=== PATIENT | female | born 1945 | race Caucasian/White ===

== ENCOUNTER → 2018-06-17 07:04 | Outpatient (CLI) | payer MEDICARE, BC, SELFPAY ==
[2018-06-17 09:31] LABS: Alanine Aminotransferase 20 IU/L (9-52); Albumin 3.9 g/dL (3.5-5.0); Albumin Globulin Ratio 1.2 (1.0-2.8); Alkaline Phosphatase 72 U/L (38-126); Aspartate Aminotransferase 23 IU/L (14-36); BUN Creatinine Ratio 18.6 (6-22); Bilirubin Total 0.4 mg/dL (0.2-1.3); Blood Urea Nitrogen 13 mg/dL (7-17); Calcium 9.2 mg/dL (8.4-10.2); Carbon Dioxide 28 mmol/L (22-32); Chloride 101 mmol/L (98-107); Cholesterol 202 mg/dL (140-199); Estimated Glomerular Filt Rate > 60.0 mL/min (>60); Globulin 3.2 g/dL (1.7-4.1); Glucose 94 mg/dL (80-110); HDL Cholesterol 54 mg/dL (40-60); HEMOLYSIS < 15 (0-50); LDL Cholesterol Calculated 122 mg/dL (<100); Potassium 4.7 mmol/L (3.4-5.1); Sodium 136 mmol/L (137-145); Total Protein 7.1 g/dL (6.3-8.2); Triglycerides 130 mg/dL (35-150)
== END ==
PROVIDERS: PCP Physician Assistant; Visit Provider Physician Assistant
DX: E78.5 Hyperlipidemia, unspecified (principal)
CPT/HCPCS: 36415; 80053; 80061

== ENCOUNTER → 2018-08-02 08:20 | Outpatient (CLI) | payer MEDICARE, BC, SELFPAY ==
[2018-08-05 18:30] LABS: Fecal Immunochemical Test NOT DETECTED
== END ==
PROVIDERS: PCP Physician Assistant; Visit Provider Physician Assistant
DX: Z12.11 Encounter for screening for malignant neoplasm of colon (principal)
CPT/HCPCS: 82274

== ENCOUNTER → 2019-03-04 10:03 | Outpatient (CLI) | payer MEDICARE, BC, SELFPAY ==
--- NOTE | 2019-03-04 | DI.MG.S_ITS ---
BILATERAL DIGITAL SCREENING MAMMOGRAM 3D/2D WITH CAD: 03/04/2019 CLINICAL: Routine screening. Family history of breast cancer. Comparison is made to exams dated: 01/09/2017 mammogram, 12/28/2014 mammogram, and 05/10/2012 mammogram - [facility]. The tissue of both breasts is predominantly fatty. Current study was also evaluated with a Computer Aided Detection (CAD) system. There are benign calcifications in the left breast. No significant masses, calcifications, or other findings are seen in either breast. There has been no significant interval change. IMPRESSION: There is no mammographic evidence of malignancy. A 1 year screening mammogram is recommended. This exam was interpreted at Station ID: [id number]. NOTE: For mammograms, a report in lay terms will be sent to the patient. Approximately 15% of breast malignancies will not be visualized mammographically. In the management of a palpable breast mass, a negative mammogram must not discourage biopsy of a clinically suspicious lesion. Electronically Signed By: Brendon norris/fercho:03/04/2019 12:43:45 letter sent: Normal Exam ACR BI-RADS Category 2: Benign Finding(s) 3342F
== END ==
PROVIDERS: PCP Physician Assistant; Visit Provider Physician Assistant
DX: Z12.31 Encounter for screening mammogram for malignant neoplasm of breast (principal); Z80.3 Family history of malignant neoplasm of breast
CPT/HCPCS: 77063; 77067

== ENCOUNTER → 2019-06-20 07:01 | Outpatient (CLI) | payer MEDICARE, BC, SELFPAY ==
[2019-06-20 08:15] LABS: Alanine Aminotransferase 14 IU/L (9-52); Albumin Globulin Ratio 1.1 (1.0-2.8); Alkaline Phosphatase 78 U/L (38-126); Aspartate Aminotransferase 28 IU/L (14-36); Bilirubin Total 0.5 mg/dL (0.2-1.3); Blood Urea Nitrogen 14 mg/dL (7-17); Carbon Dioxide 28 mmol/L (22-32); Chloride 101 mmol/L (98-107); Cholesterol 219 mg/dL (140-199); Estimated Glomerular Filt Rate > 60.0 mL/min (>60); Globulin 3.7 g/dL (1.7-4.1); Glucose 100 mg/dL (80-110); HDL Cholesterol 51 mg/dL (40-60); HEMOLYSIS < 15 (0-50); LDL Cholesterol Calculated 144 mg/dL (<100); Potassium 4.5 mmol/L (3.4-5.1); Sodium 135 mmol/L (137-145); Total Protein 7.7 g/dL (6.3-8.2); Triglycerides 118 mg/dL (35-150)
== END ==
PROVIDERS: PCP Physician Assistant; Visit Provider Physician Assistant
DX: E78.5 Hyperlipidemia, unspecified (principal); J45.909 Unspecified asthma, uncomplicated; M85.80 Other specified disorders of bone density and structure, unspecified site
CPT/HCPCS: 36415; 80053; 80061

== ENCOUNTER 2019-09-15 17:30 | Emergency (ER) | payer MEDICARE, BC, SELFPAY ==
--- NOTE | 2019-09-15 17:56 | ED.CPR ---
HPI - CPR General Chief Complaint: Cardiac Arrest/CPR Stated Complaint: Code Blue Time Seen by Provider: 09/15/19 17:55 Source: EMS Mode of arrival: EMS Limitations: no limitations History of Present Illness HPI narrative: This is a 73-year-old female comes to the emergency department with complaint of chest pain initially that coated EN route to [facility]. Patient appear to have any anterior semi on EMS EKG. Patient arrived without pulses after approximately 30 minutes of CPR multiple rounds of epinephrine, vasopressin shocks when patient was in ventricular fibrillation patient resumed pulses. patient has history of being on atorvastatin, alendronate, and buspirone in the medical system. There are no other notes. Related Data Home Medications Medication Instructions Recorded Confirmed [MEDICAL MARIJUANA] PO QPM #0 10/07/12 07/29/19 Desoximetasone 0.05% See Rx Instructions .ROUTE .COMPLEX 07/02/18 07/29/19 CBD OIL See Rx Instructions .ROUTE .COMPLEX 04/03/19 07/29/19 mirabegron 25 mg tablet,extended 25 mg PO BEDTIME tab 06/19/19 07/29/19 release 24 hr Previous Rx's Medication Instructions Recorded pneumoc 13-jaydon conj-dip cr(PF) 0.5 ml IM X1 #1 ea 07/11/17 [Prevnar 13 (PF)] diazepam 5 mg tablet 5 mg PO HS PRN #30 tab 07/02/18 alendronate 70 mg tablet 70 mg PO QWEEK #4 tab 08/19/18 atorvastatin 10 mg tablet 10 mg PO HS #90 tab 12/30/18 estradiol 10 mcg vaginal tablet 10 mcg VAGINAL 2XWEEK #24 tab 12/30/18 varicella-zoster [id number] (PF) 50 50 mcg IM ONCE #1 each 12/30/18 mcg/0.5 mL IM susp, kit buspirone 7.5 mg tablet 7.5 mg PO TID #270 tab 02/24/19 levalbuterol tartrate 45 2 puff INHALATION Q4-6H #4 each 04/07/19 mcg/actuation aerosol inhaler valacyclovir 1 gram tablet 2,000 mg PO DAILY PRN #4 tab 05/27/19 hyoscyamine sulfate 0.125 mg 0.125 mg PO QIDP PRN #360 odt 06/19/19 disintegrating tablet Allergies Allergy/AdvReac Type Severity Reaction Status Date / Time influenza virus vaccine, AdvReac Intermediate ROUND Unverified 07/29/19 10:07 specific BUMPS FROM [INFLUENZA VIRUS THE WAIST VACC,SPECIFIC] DOWN, VERY ILL CHEMICALS AdvReac Severe (HAIR Uncoded 07/29/19 10:07 COLOR) SWELLING ALL OVER BODY PAIN MEDS AdvReac Mild NAUSEA/VOMITING, Uncoded 07/29/19 10:07 CONSTIPATION Review of Systems Review of Systems ROS Unobtainable: Unobtainable due to mental status/LOC Patient History Medical History Anxiety (Chronic) Chicken pox (Resolved) Depression (Chronic) Herpes (Chronic) Hyperlipidemia (Chronic 1994) IBS (irritable bowel syndrome) (Chronic) Measles (Resolved) Mumps (Resolved) Osteopenia (Chronic) PTSD (post-traumatic stress disorder) (Chronic) Rubella (Resolved) [place] fever (Chronic 1995) Vaginal vault prolapse (Chronic) Surgical History History of cosmetic surgery (Resolved 1988) History of cosmetic surgery (Resolved 1994) Status post hysterectomy (Resolved 1972) Social History Smoking Status: Never smoker second hand exposure: No alcohol intake: current (maybe 2 to 3 times a year. I'm not a big drinker.) substance use type: marijuana (medical marijuana to help me sleep.) Exam Narrative Exam Narrative: GENERAL: Unresponsive obese female HEENT: Head normocephalic, atraumatic, face symmetric NECK: Supple, full range of motion CARDIOVASCULAR: Pulseless. RESPIRATORY: Apneic ABDOMEN: Soft, nontender. Normoactive bowel sounds all 4 quadrants. No guarding or rebound, rigidity, no mass : No CVA tenderness EXTREMITIES: No movement. NEUROLOGICAL: GCS 3 SKIN: Pale. Scores GCS Pierce coma scale eye opening: None Pierce coma scale verbal response: None Pierce coma scale motor response: None Pierce coma scale total score: 3 Course Orders Ordered: ED Orders 09/15/19 17:57 XR chest 1V Stat EKG-12 Lead Stat Amiodarone HCl/Dextrose (Nexterone) 360 mg in 200 mls @ 33.333 mls/hr IV NOW ONE; Protocol Stop: 09/16/19 00:00 Epinephrine HCl 1 mg/ Dextrose 251 mls @ 15.06 mls/hr IV TITRATE IZZY; Protocol Discontinued Medications Aspirin (Aspirin Supp) 600 mg KS NOW ONE Stop: 09/15/19 18:02 Heparin Sodium (Porcine) (Heparin) 7,500 unit IV NOW ONE Stop: 09/15/19 18:02 MDM - Cardiac Arrest/CPR Imaging Data Chest x-ray: Radiologist's impression: [address] [address] XRay Report Signed Patient: Quynh Campbell [facility]#: [id number] : 7Acct:[id number] Age/Sex: 73 / FDate of Service: 09/15/19 Loc: ED Accession Number: [id number] Procedure: XR chest 1V Ordering Provider: Betzy Cheema D.O. PROCEDURE: XR CHEST 1V INDICATIONS: intubation/CPR/STATUS POST CPR TECHNIQUE: One view of the chest was acquired. COMPARISON: None. FINDINGS: Surgical changes and devices: Endotracheal tube is in good position above the level of the [place]. Defibrillator pad overlies the right upper chest. Lungs and pleura: Hazy bilateral perihilar and upper lobe parenchymal opacities are seen. No obvious pneumothorax or pleural effusion. No dense consolidation. Mediastinum: Mediastinal contours appear normal. Heart size is normal. Bones and chest wall: Right third through sixth rib fractures. Overlying soft tissues appear unremarkable. IMPRESSION: 1. Endotracheal tube in satisfactory position. 2. Hazy bilateral upper lobe alveolar opacities may be secondary to edema, hemorrhage, aspiration or, possibly infection, but are nonspecific. 3. Right-sided rib fractures expected post CPR. Dictated by: Yanely Alonzo M.D. on 09/15/2019 at 18:34 Approved by: Yanely Alonzo M.D. on 09/15/2019 at 18:36 ECG Data Attestation: I personally reviewed and interpreted this ECG as follows: Interpretation: After the 1st event of CPR patient has ST elevation in V1 to in 3. With elevation in 1 and aVL. [facility] Narrative Medical decision making narrative: Spoke with Dr. Gorman, he accepts for transfer. He asked that we contact Dr. Villanueva from cardiology. I spoke with Dr. Villanueva from Cardiology. he will meet the patient at the hospital. Patient lost pulses again after approximately 15 minutes of CPR she began to have pulses and purposeful movement trying to pull her ET tube. Patient received 300 mg total of amiodarone. She received 5 rounds of epinephrine including from EMS, 1 dose of vasopressin. Patient was in ventricular fibrillation and had several set shocks without improvement. After regaining pulses she became bradycardic and lost pulses, CPR was resumed. On 2nd round of CPR, patient received 3 doses of epinephrine, 1 dose of atropine. She was in PE a and did resume pulses. I did recontact Dr. Bucio at [facility], and he is aware of plan and patient is being transported. Critical Care Time Critical Care Time Critical Care Time: Yes Total Critical Care Time: 77 Attestation: The high probability of a clinically significant, sudden or life threatening deterioration of the cardiopulmonary system(s) required my full and direct attention, intervention and personal management. The aggregate critical care time was [77] minutes. This time is in addition to time spent performing reported procedures but includes the following: [x] Data Review and interpretation x[] Patient assessment and monitoring of vital signs [x] Documentation [x] Medication orders and management Discharge Plan Departure Patient Disposition: [facility] Clinical Impression: Cardiac arrest, ST elevation (STEMI) myocardial infarction Prescriptions: No Action Desoximetasone 0.05% cream See Rx Instructions .ROUTE .COMPLEX RF: 0 diazepam [Valium] 5 mg tablet 5 mg PO HS PRN (Reason: anxiety) Qty: 30 RF: 0 Shingrix (PF) 50 mcg/0.5 mL suspension for reconstitution 50 mcg IM ONCE Qty: 1 RF: 1 estradiol [Vagifem] 10 mcg tablet 10 mcg Vaginal 2XWEEK Qty: 24 RF: 3 atorvastatin [Lipitor] 10 mg tablet 10 mg PO HS Qty: 90 RF: 3 [MEDICAL MARIJUANA] PO QPM Qty: 0 RF: 0 pneumoc 13-jaydon conj-dip cr(PF) [Prevnar 13 (PF)] 0.5 ML syringe 0.5 ml IM X1 Qty: 1 RF: 0 alendronate 70 mg tablet 70 mg PO QWEEK Qty: 4 RF: 12 buspirone 7.5 mg tablet 7.5 mg PO TID Qty: 270 RF: 3 levalbuterol tartrate [Xopenex HFA] 45 mcg/actuation HFA aerosol inhaler 2 puff INHALATION Q4-6H Qty: 4 RF: 3 valacyclovir 1 gram tablet 2,000 mg PO DAILY PRN (Reason: herpes outbreak) Qty: 4 RF: 6 CBD OIL See Rx Instructions .ROUTE .COMPLEX RF: 0 Myrbetriq 25 mg tablet extended release 24 hr 25 mg PO BEDTIME RF: 0 hyoscyamine sulfate 0.125 mg tablet,disintegrating 0.125 mg PO QIDP PRN (Reason: IBS) Qty: 360 RF: 0 Referrals: Faith Palomares PA-C [Primary Care Provider] -
--- NOTE | 2019-09-15 18:50 | PC.NURSE ---
1836 See Code Sheet for further info.
[2019-09-15 19:10] LABS: Hematocrit 44.5 % (36-46); Hemoglobin 13.6 g/dL (12.0-16.0); INR 1.1 (0.9-1.3); Mean Corpuscular HGB Conc 30.5 % (30-36); Mean Corpuscular Hemoglobin 31.8 PG (26-34); Mean Corpuscular Volume 104.3 fL (80-100); Platelet Count 193 X10^3/uL (150-400); Prothrombin Time 12.7 SECONDS (10.1-12.7); Red Blood Cell Count 4.27 X10^6/uL (4.0-5.2); Red Cell Distribution Width 16.4 % (11.6-14.8); White Blood Cell Count 10.6 X10^3/uL (4.5-11.0)
[2019-09-15 19:14] LABS: Alanine Aminotransferase 287 IU/L (<35); Albumin 3.3 g/dL (3.5-5.0); Albumin Globulin Ratio 1.1 (1.0-2.8); Alkaline Phosphatase 62 U/L (38-126); Aspartate Aminotransferase 321 IU/L (14-36); BUN Creatinine Ratio 11.8 (6-22); Bilirubin Total 0.6 mg/dL (0.2-1.3); Blood Urea Nitrogen 13 mg/dL (7-17); Calcium 8.6 mg/dL (8.4-10.2); Carbon Dioxide 11 mmol/L (22-32); Chloride 104 mmol/L (98-107); Creatine Kinase 400 U/L (30-135); Globulin 3.1 g/dL (1.7-4.1); Glucose 344 mg/dL (80-110); Sodium 138 mmol/L (137-145); Total Protein 6.4 g/dL (6.3-8.2)
[2019-09-15 19:25] LABS: Neutrophils Absolute Manual 1272 /uL (3000-5900); Total Cells Counted 100
[2019-09-15 19:26] LABS: Anisocytosis 1+; Macrocytosis 1+; Poikilocytosis 1+
[2019-09-15 19:29] LABS: CKMB % Relative Index 3.9 % (1.5-5.0); HEMOLYSIS 140 (0-50); PTT Partial Thromboplastin Tim 85 SECONDS (26.4-36.2)
[2019-09-15 19:30] LABS: B Type Natriuretic Peptide 111 (<100)
[2019-09-15 19:31] LABS: Troponin I 0.973 ng/mL (0.01-0.034)
== END 2019-09-15 18:30 | disposition short-term general hospital (02) ==
PROVIDERS: Emergency Provider Emergency Medicine; PCP Physician Assistant
DX: I46.9 Cardiac arrest, cause unspecified (principal); I21.3 ST elevation (STEMI) myocardial infarction of unspecified site
CPT/HCPCS: 71045; 80053; 82550; 82553; 83880; 84484; 85025; 85610; 85730; 92950; 93005; 94770; 94799; 99282; 99291; 99292; J0171; J0282; J0461; J1644; J3360